=== PATIENT | female | born 1985 | race Caucasian/White ===

== ENCOUNTER 2017-06-08 13:10 | Emergency (ER) | payer OTHER ==
[~2017-06-08] VITALS: Ht 162.6 cm; Wt 80.3 kg
[2017-06-08 13:24] VITALS: Ht 162.6 cm; Wt 80.3 kg
[2017-06-08 15:07] VITALS: BP 145/100
== END 2017-06-08 15:07 | disposition home or self-care (01) ==
LOC: ED 13:10
DX: M25.521 Pain in right elbow (principal); F15.10 Other stimulant abuse, uncomplicated; Y04.8XXA Assault by other bodily force, initial encounter; Y93.89 Activity, other specified; Y92.89 Other specified places as the place of occurrence of the external cause; Y99.8 Other external cause status

== ENCOUNTER 2017-10-06 21:59 | Inpatient (IN) | payer OTHER ==
[~2017-10-06] VITALS: Ht 162.6 cm; Wt 79.8 kg
[2017-10-06 22:13] VITALS: Ht 162.6 cm; Wt 79.8 kg
[2017-10-06 23:09] LABS: BASOPHIL % 1.1 % (0-2); PLATELET COUNT 254 x10^3mcL (130-400); RED CELL DISTRIBUTION WIDTH 12.2 % (11.5-14.5)
[2017-10-06 23:24] LABS: CALCIUM 8.7 mg/dL (8.5-10.1); CARBON DIOXIDE 20.1 mmol/L (21-32); CHLORIDE SERUM 103 mmol/L (98-107); CREATININE SERUM 0.8 mg/dL (0.6-1.0); GFR1 > 60 mL/min; GLUCOSE SERUM 85 mg/dL (74-106); POTASSIUM SERUM 3.3 mmol/L (3.5-5.1); SODIUM SERUM 138 mmol/L (136-145)
[2017-10-06 23:29] LABS: ALBUMIN 3.6 g/dL (3.4-5.0); ALKALINE PHOSPHATASE 76 U/L (46-116); ALT/SGPT 19 U/L (14-59); AST/SGOT 16 U/L (15-37); BILIRUBIN TOTAL 0.9 mg/dL (0.20-1.00)
[2017-10-07 04:08] LABS: UA SPECIFIC GRAVITY >=1.030 (1.005-1.035); microscopic required? YES; urine erythrocyte TRACE (NEGATIVE)
[2017-10-07 04:33] LABS: AMPHETAMINE QUAL UR POSITIVE (See below)
[2017-10-07] MEDS ORDERED: ESCITALOPRAM10 M1 PO (05:27)
[2017-10-07] MEDS ORDERED: PAROXETINE HCL20 M1 PO (05:27)
[2017-10-07 06:05] VITALS: BP 103/63
[2017-10-07 09:12] VITALS: BP 106/58
[2017-10-07 09:22] VITALS: BP 106/58
[2017-10-07 14:21] VITALS: BP 112/73
[2017-10-07 17:44] VITALS: BP 98/55
[2017-10-07 20:30] VITALS: BP 106/57
[2017-10-08 05:47] VITALS: BP 104/62
[2017-10-08 06:21] LABS: BASOPHIL % 0.6 % (0-2); PLATELET COUNT 259 x10^3mcL (130-400); RED CELL DISTRIBUTION WIDTH 12.7 % (11.5-14.5)
[2017-10-08 06:33] LABS: CALCIUM 8.2 mg/dL (8.5-10.1); CARBON DIOXIDE 21.4 mmol/L (21-32); CHLORIDE SERUM 104 mmol/L (98-107); CREATININE SERUM 0.7 mg/dL (0.6-1.0); GFR1 > 60 mL/min; GLUCOSE SERUM 88 mg/dL (74-106); PHOSPHOROUS 3.1 mg/dL (2.5-4.9); POTASSIUM SERUM 4.1 mmol/L (3.5-5.1); SODIUM SERUM 136 mmol/L (136-145)
[2017-10-08 08:54] VITALS: BP 113/78
[2017-10-08 13:07] VITALS: BP 115/60
[2017-10-08 16:09] VITALS: BP 128/79
[2017-10-08 20:57] VITALS: BP 123/74
[2017-10-09 05:16] VITALS: BP 120/75
[2017-10-09 06:16] LABS: CALCIUM 8.3 mg/dL (8.5-10.1); CARBON DIOXIDE 25.2 mmol/L (21-32); CHLORIDE SERUM 101 mmol/L (98-107); CREATININE SERUM 0.7 mg/dL (0.6-1.0); GFR1 > 60 mL/min; GLUCOSE SERUM 94 mg/dL (74-106); POTASSIUM SERUM 3.9 mmol/L (3.5-5.1); SODIUM SERUM 136 mmol/L (136-145)
[2017-10-09 06:27] LABS: BASOPHIL % 0.4 % (0-2); PLATELET COUNT 268 x10^3mcL (130-400); RED CELL DISTRIBUTION WIDTH 12.4 % (11.5-14.5)
[2017-10-09 08:58] VITALS: BP 134/87
[2017-10-09 17:38] VITALS: BP 136/81
[2017-10-09] MEDS ORDERED: HYDROXYZINE HYD10 MG PO (17:48)
[2017-10-09] MEDS ORDERED: PAXIL10 MG PO (17:49)
[2017-10-09 22:25] VITALS: BP 115/71
[2017-10-10 05:13] VITALS: BP 114/75
[2017-10-10 16:11] VITALS: BP 104/68
[2017-10-11 06:31] VITALS: BP 107/68
== END 2017-10-11 08:20 | disposition left against medical advice (07) | DRG 885 ==
LOC: ED 21:59 → DU 10-07 05:01 → MU 10-07 05:57 → DU 10-07 05:59 → MU 10-08 17:34
PROVIDERS: Emergency Medicine; Family Medicine
DX: F31.13 Bipolar disorder, current episode manic without psychotic features, severe (principal); G92 Toxic encephalopathy; N17.0 Acute kidney failure with tubular necrosis; F15.221 Other stimulant dependence with intoxication delirium; N39.0 Urinary tract infection, site not specified; R45.851 Suicidal ideations; T43.621A Poisoning by amphetamines, accidental (unintentional), initial encounter; E87.6 Hypokalemia; E83.51 Hypocalcemia; F12.10 Cannabis abuse, uncomplicated; Z68.31 Body mass index [BMI] 31.0-31.9, adult; F17.210 Nicotine dependence, cigarettes, uncomplicated; Y92.009 Unspecified place in unspecified non-institutional (private) residence as the place of occurrence of the external cause
CPT/HCPCS: 83880; 84439; G0480; J0696; J1630; J2060; J3486; J7030

== ENCOUNTER 2017-10-11 08:28 | Emergency (ER) | payer OTHER ==
[~2017-10-11] VITALS: Ht 162.6 cm; Wt 79.4 kg
[~2017-10-11 08:28] MED LIST: ESCITALOPRAM10 M1 PO; HYDROXYZINE HYD10 MG PO; PAROXETINE HCL20 M1 PO; PAXIL10 MG PO
[2017-10-11 10:44] VITALS: BP 149/78
== END 2017-10-11 10:44 | disposition home or self-care (01) ==
LOC: ED 08:28
DX: F32.9 Major depressive disorder, single episode, unspecified (principal); F15.10 Other stimulant abuse, uncomplicated